=== PATIENT | female | born 1970 | race Caucasian/White ===

== ENCOUNTER 2022-06-10 10:39 | Outpatient (CLI) | payer OTHER ==
[~2022-06-10 10:39] MED LIST: CODE1TAB37 PO; Mylicon 125MG PO
== END 2022-06-10 15:20 | disposition home or self-care (01) ==
LOC: MAMO-SONO 10:39
PROVIDERS: ATTEND Obstetrics & Gynecology
DX: N63.0 Unspecified lump in unspecified breast (principal); N64.59 Other signs and symptoms in breast; N64.9 Disorder of breast, unspecified; N94.0 Mittelschmerz; R10.2 Pelvic and perineal pain; N94.89 Other specified conditions associated with female genital organs and menstrual cycle

== ENCOUNTER 2023-05-17 13:23 | Outpatient (CLI) | payer OTHER | END 2023-05-17 13:40 | disposition home or self-care (01) | LOC: MAMO-SONO 13:23 | PROVIDERS: ATTEND Legal Medicine | DX: N64.4 Mastodynia (principal); R05.9 Cough, unspecified ==

== ENCOUNTER 2024-09-25 11:24 | Outpatient (CLI) | payer OTHER | END 2024-09-25 11:32 | disposition home or self-care (01) | LOC: MAMO-SONO 11:24 | DX: N64.4 Mastodynia (principal); Z12.31 Encounter for screening mammogram for malignant neoplasm of breast; N92.0 Excessive and frequent menstruation with regular cycle ==